=== PATIENT | female | born 1990 | race Caucasian/White ===

== ENCOUNTER 2017-06-17 13:04 | Emergency (ER) | payer OTHER ==
[~2017-06-17] VITALS: Ht 170.2 cm; Wt 100.0 kg
[~2017-06-17 13:04] MED LIST: AMOXICILLIN/CL875 MG PO; AMOXICILLIN500 MG PO; FLEXERIL OR; IBUPROFEN800 MG PO; NO MEDS; PROAIR HFA IN; ULTRAM50 MG OR
[2017-06-17 14:00] LABS: HEMATOCRIT 40.9 % (37.0-47.0); HEMOGLOBIN 13.4 g/dl (12.0-16.0); IMMATURE GRANULOCYTES 0.4 % (0.0-1.0); MEAN CELL VOLUME 74.5 fL CALC (80.0-100.0); MEAN CORPUSCULAR HGB 24.4 pG CALC (26.0-32.0); MEAN CORPUSCULAR HGB CONC 32.8 g/L CALC (32.0-36.0); NEUT# 7.87 thou/uL (2.00-7.15); RED BLOOD COUNT 5.49 mill/uL (4.20-5.60)
[2017-06-17 14:12] LABS: ALBUMIN 4.2 g/dL (3.2-5.0); ALKALINE PHOSPHATASE 64 u/l (38-126); ANION GAP 15 (6-22 (CALC)); BILIRUBIN, TOTAL 0.3 mg/dL (0.0-1.4); BUN 7 mg/dL (7-17); BUN/CREATININE RATIO 13 (12-20 (CALC)); CALCIUM 9.4 mg/dL (8.4-10.2); CARBON DIOXIDE 22 mmol/l (22-30); CHLORIDE 105 mmol/l (95-108); CREATININE 0.6 mg/dL (0.5-1.0); GFR > 60 ML/MIN (>=60 (CALC)); GFR FOR AFR.AMER. > 60 ML/MIN (>=60 (CALC)); GLUCOSE 97 mg/dL (65-105); POTASSIUM 3.9 mmol/l (3.5-5.1); SGOT/AST 19 u/l (14-36); SGPT/ALT 30 u/l (9-52); SODIUM 138 mmol/l (137-146); TOTAL PROTEIN 7.4 g/dL (6.3-8.2)
[2017-06-17 14:54] LABS: BETA-HCG, QUANT(RESULT NUMBER) 145620 mIU/mL
[2017-06-17 15:11] VITALS: BP 130/81
== END 2017-06-17 15:28 | disposition home or self-care (01) | DRG 782 ==
LOC: ED 13:04
PROVIDERS: Family Medicine
DX: O26.851 Spotting complicating pregnancy, first trimester (principal); F17.200 Nicotine dependence, unspecified, uncomplicated

== ENCOUNTER 2018-01-06 19:40 | Emergency (ER) | payer OTHER ==
[~2018-01-06] VITALS: Ht 170.2 cm; Wt 113.2 kg
[2018-01-06 21:12] LABS: URINE BILIRUBIN - DIPSTICK NEGATIVE (NEGATIVE); URINE BLOOD DIPSTICK LARGE (NEGATIVE); URINE COLOR YELLOW; URINE GLUCOSE - DIPSTICK NEGATIVE (NEGATIVE); URINE KETONE NEGATIVE (NEGATIVE); URINE NITRITE - DIPSTICK NEGATIVE (Negative); URINE PH 6.5 (4.5-8.0); URINE PROTEIN - DIPSTICK NEGATIVE (NEG-TRACE); URINE SPECIFIC GRAVITY <=1.005; URINE UROBILINOGEN - DIPSTICK 0.2 E.U./dL (0.2)
[2018-01-06 21:29] LABS: HEMATOCRIT 38.1 % (37.0-47.0); HEMOGLOBIN 12.3 g/dl (12.0-16.0); IMMATURE GRANULOCYTES 0.7 % (0.0-1.0); MEAN CORPUSCULAR HGB 26.3 pG CALC (26.0-32.0); MEAN CORPUSCULAR HGB CONC 32.3 g/L CALC (32.0-36.0); NEUT# 7.34 thou/uL (2.00-7.15); RED BLOOD COUNT 4.68 mill/uL (4.20-5.60); RED CELL DISTRI WIDTH 19.9 % (11.5-15.5)
[2018-01-06 21:30] LABS: INFLUENZA A NONE DETECTED (NONE DETECT); INFLUENZA B NONE DETECTED (NONE DETECT)
[2018-01-06 21:46] LABS: MEAN CELL VOLUME 81.4 fL CALC (80.0-100.0)
[2018-01-06 21:52] LABS: ALBUMIN 3.4 g/dL (3.2-5.0); ALKALINE PHOSPHATASE 128 u/l (38-126); ANION GAP 16 (6-22 (CALC)); BILIRUBIN, TOTAL 0.3 mg/dL (0.0-1.4); BUN 16 mg/dL (7-17); BUN/CREATININE RATIO 26 (12-20 (CALC)); CARBON DIOXIDE 23 mmol/l (22-30); CHLORIDE 109 mmol/l (95-108); CREATININE 0.6 mg/dL (0.5-1.0); GFR > 60 ML/MIN (>=60 (CALC)); GFR FOR AFR.AMER. > 60 ML/MIN (>=60 (CALC)); POTASSIUM 3.9 mmol/l (3.5-5.1); SGOT/AST 25 u/l (14-36); SGPT/ALT 33 u/l (9-52); SODIUM 143 mmol/l (137-146); TOTAL PROTEIN 6.1 g/dL (6.3-8.2)
[2018-01-06 21:54] LABS: URINE CLARITY CLOUDY; URINE LEUK ESTERASE MODERATE (NEGATIVE)
[2018-01-06 21:55] LABS: ACT PARTIAL THROMBO TIME 29.4 SECONDS (20.0-32.5); PROTHROMBIN TIME 10.6 SECONDS (9.0-12.5)
[2018-01-06 21:57] LABS: URINE BACTERIA FEW hpf; URINE RBC TNTC RBC/hpf (0-5); URINE SQUAMOUS EPITHELIAL CELL FEW EPI/hpf (0-FEW); URINE WBC 20-50 WBC/hpf (0-5)
[2018-01-06] MEDS ORDERED: LABETALOL100 MG PO (23:01)
[2018-01-07 05:38] VITALS: BP 140/75
== END 2018-01-07 05:40 | disposition home or self-care (01) | DRG 776 ==
LOC: ED 19:40
PROVIDERS: Emergency Medicine
DX: O16.5 Unspecified maternal hypertension, complicating the puerperium (principal)

== ENCOUNTER 2018-05-02 14:53 | Emergency (ER) | payer SELFPAY ==
[~2018-05-02] VITALS: Ht 170.2 cm; Wt 90.0 kg
[~2018-05-02 14:53] MED LIST changes: +LABETALOL100 MG PO
[2018-05-02 15:46] LABS: IMMATURE GRANULOCYTES 0.3 % (0.0-1.0); MEAN CORPUSCULAR HGB 29.8 pG CALC (26.0-32.0); MEAN CORPUSCULAR HGB CONC 34.7 g/L CALC (32.0-36.0); NEUT# 7.78 thou/uL (2.00-7.15); RED BLOOD COUNT 5.13 mill/uL (4.20-5.60); RED CELL DISTRI WIDTH 13.7 % (11.5-15.5)
[2018-05-02 15:47] LABS: HEMATOCRIT 44.1 % (37.0-47.0); HEMOGLOBIN 15.3 g/dl (12.0-16.0)
[2018-05-02 16:00] LABS: ANION GAP 12 (6-22 (CALC)); BUN 9 mg/dL (7-17); BUN/CREATININE RATIO 14 (12-20 (CALC)); CARBON DIOXIDE 26 mmol/l (22-30); CHLORIDE 105 mmol/l (95-108); CREATININE 0.6 mg/dL (0.5-1.0); GFR > 60 ML/MIN (>=60 (CALC)); GFR FOR AFR.AMER. > 60 ML/MIN (>=60 (CALC)); POTASSIUM 4.2 mmol/l (3.5-5.1); SODIUM 139 mmol/l (137-146)
[2018-05-02 16:45] VITALS: BP 132/77
== END 2018-05-02 16:45 | disposition home or self-care (01) | DRG 761 ==
LOC: ED 14:53
PROVIDERS: Family Medicine
DX: N92.0 Excessive and frequent menstruation with regular cycle (principal)

== ENCOUNTER 2024-07-30 03:09 | Emergency (ER) | payer SELFPAY ==
[~2024-07-30] VITALS: Ht 167.6 cm; Wt 111.0 kg
[~2024-07-30 03:09] MED LIST changes: +AMOX/K CLAV875 M1 PO; +AZELASTINE HCL0.15 % NAB; +COZAAR25 MG PO; +HYDROCHLOROT25 MG PO; +LISINOPRIL10 MG PO; +MEDDOSEPAK PO
[2024-07-30] MEDS ORDERED: ACETAMINOPHEN 500 MG TAB PO ONE (03:30)
[2024-07-30] MEDS ORDERED: methylPREDNISolone SODIUM SUCC 125 MG/2 ML SDV IM ONE (03:30)
[2024-07-30] MEDS ORDERED: traMADol HCL 50 MG/TAB PO ONE (03:30)
[2024-07-30] MEDS ORDERED: KETOROLAC TROMETHAMINE 30 MG/ML SDV IM ONE (03:30)
[2024-07-30] MEDS ORDERED: VOLTAREN - GENE75 MG PO (04:33)
[2024-07-30] MEDS ORDERED: TRAMADOL HCL50 MG PO (04:33)
[2024-07-30 04:45] VITALS: BP 135/86
== END 2024-07-30 04:45 | disposition home or self-care (01) | DRG 74 ==
LOC: ED 03:09
DX: M54.12 Radiculopathy, cervical region (principal); E66.9 Obesity, unspecified; F41.9 Anxiety disorder, unspecified; F32.A Depression, unspecified; Z72.0 Tobacco use